=== PATIENT | male | born 1980 | race Caucasian/White ===

== ENCOUNTER 2021-04-10 18:04 | Emergency (ER) | payer OTHER ==
[~2021-04-10] VITALS: Ht 193 cm; Wt 119.0 kg
--- NOTE | 2021-04-10 18:44 | NUR ---
director of food and nutrition services: Pt ambulatory to room from lobby at this time.
--- NOTE | 2021-04-10 18:55 | NUR ---
PT C/O OF CHEST PRESSURE, HEART GURGGLING, SOB, AND COUGH SINCE 2 WEEKS AGO. PT APPEARS IN NAD, ATTACHED TO CARD/SP02/BP MONITORS. VSS. BREATHING EVEN AND UNLABORED. BED IN LOW POSITION, RAILS ENGAGED, CALL LIGHT WITHIN REACH. WCTN
[2021-04-10 19:06] LABS: BASOPHILS % (AUTO) 1 % (0-1); EOSINOPHILS % (AUTO) 3 % (1-7); LYMPHOCYTES % (AUTO) 25 % (22-44); MEAN CORPUSCULAR HEMOGLOBIN 29.7 pg (27.5-34.5); MEAN CORPUSCULAR HGB CONC 34.7 g/dL (33.2-36.2); MEAN PLATELET VOLUME 9.4 fL (7.4-10.4); MONOCYTES % (AUTO) 7 % (2-9); NEUTROPHILS % (AUTO) 64 % (42-75); PLATELET COUNT 184 x10^3/uL (130-400); RED CELL DISTRIBUTION WIDTH 13.3 % (9.4-14.8)
[2021-04-10 19:10] LABS: ALANINE AMINOTRANSFERASE 74 U/L (12-78); ALBUMIN 3.9 g/dL (3.4-5.0); ANION GAP 5 mmol/L (5-15); CALCIUM 8.4 mg/dL (8.5-10.1); CHLORIDE 106 mmol/L (98-107); CREATININE 1.16 mg/dL (0.7-1.3)
[2021-04-10 19:14] LABS: ALKALINE PHOSPHATASE 107 U/L (45-117); BILIRUBIN,TOTAL 0.3 mg/dL (0.2-1.0); TOTAL PROTEIN 7.3 g/dL (6.4-8.2); TROPONIN I < 0.015 ng/mL (0.000-0.045)
[2021-04-10 19:50] VITALS: BP 120/63
--- NOTE | 2021-04-10 20:01 | NUR ---
Patient given discharge instructions and they have confirmed that they understand the instructions. Patient ambulatory with steady gait.
== END 2021-04-10 20:02 | disposition home or self-care (01) ==
LOC: ED 19:56
DX: R00.2 Palpitations (principal); R06.00 Dyspnea, unspecified; R07.89 Other chest pain; R00.1 Bradycardia, unspecified
CPT/HCPCS: 36415; 71045; 80053; 84484; 85025; 93005; 99285

== ENCOUNTER 2021-05-28 10:49 | Emergency (ER) | payer OTHER ==
[~2021-05-28] VITALS: Ht 193 cm; Wt 114.0 kg
[2021-05-28] MEDS ORDERED: ACETAMINOPHEN 500 MG TABLET PO ONE (11:30)
[2021-05-28] MEDS ORDERED: SODIUM CHLORIDE 0.9% 1,000ML IVBOLUS ONE (11:30)
[2021-05-28] MEDS ORDERED: KETOROLAC 30 MG/1 ML IVPush ONE (11:30)
[2021-05-28] MEDS ORDERED: SODIUM CHLORIDE FLUSH 10ML SYR IVF ONE (11:30)
[2021-05-28 11:47] LABS: MEAN CORPUSCULAR HEMOGLOBIN 29.1 pg (27.5-34.5); MEAN CORPUSCULAR HGB CONC 34.2 g/dL (33.2-36.2); MEAN PLATELET VOLUME 9.3 fL (7.4-10.4); PLATELET COUNT 147 x10^3/uL (130-400); RED BLOOD COUNT 5.34 x10^6/uL (4.38-5.82); RED CELL DISTRIBUTION WIDTH 13.6 % (9.4-14.8)
[2021-05-28 11:58] LABS: ANION GAP 6 mmol/L (5-15); CALCIUM 8.7 mg/dL (8.5-10.1); CHLORIDE 105 mmol/L (98-107)
[2021-05-28 12:04] LABS: ALANINE AMINOTRANSFERASE 64 U/L (12-78); ALKALINE PHOSPHATASE 102 U/L (45-117); BILIRUBIN,TOTAL 0.5 mg/dL (0.2-1.0); CREATININE 1.38 mg/dL (0.7-1.3); TOTAL PROTEIN 7.6 g/dL (6.4-8.2); TROPONIN I < 0.015 ng/mL (0.000-0.045)
[2021-05-28 12:15] LABS: LYMPH#(MANUAL) 0.47 x10^3/uL (1-3.4); LYMPHS% (MANUAL) 8 % (22-44); MONOS#(MANUAL) 0.94 x10^3/uL (0.3-2.7); MONOS% (MANUAL) 16 % (2-9); REACTIVE LYMPHS # (MANUAL) 0.06 x10^3/uL (0-0); REACTIVE LYMPHS % (MANUAL) 1 % (0-0)
[2021-05-28 12:17] LABS: <RBC MORPHOLOGY> NORMAL; BAND#(MANUAL) 0.41 x10^3/uL; BANDS%(MANUAL) 7 % (0-7); SEG#(MANUAL) 4.01 x10^3/uL (1.8-6.8); SEGS% (MANUAL) 68 % (42-75)
[2021-05-28] MEDS ORDERED: ACETAMINOPHEN 500 MG TABLET ONE (12:28)
[2021-05-28] MEDS ORDERED: KETOROLAC 30 MG/1 ML ONE (12:28)
--- NOTE | 2021-05-28 12:35 | NUR ---
IV PLACED BY EMT. NS BOLUS INFUSING, MEDS GIVEN PER ERP ORER. VSS/UPDATED IN COMPUTER. PO FLUIDS PROVIDED PER REQUEST. AWAITING DDIMER. CALL LIGHT WITHIN REACH.
[2021-05-28 13:24] LABS: <PLATELET ESTIMATE> ADEQUATE; <PLT MORPHOLOGY> NORMAL PLT MORPH
--- NOTE | 2021-05-28 14:22 | NUR ---
PT AMBULATED IN ROOM WITH PULSE OX. READING 94%, REPORTED TO ERP.
[2021-05-28 14:56] VITALS: BP 113/77
== END 2021-05-28 15:55 | disposition home or self-care (01) ==
LOC: ED 13:43
DX: B34.9 Viral infection, unspecified (principal); Z20.822 Contact with and (suspected) exposure to COVID-19; R07.89 Other chest pain; R00.0 Tachycardia, unspecified
CPT/HCPCS: 36415; 71045; 80053; 84484; 85025; 85379; 93005; 93971; 96374; 99285; J1885; J7030; U0003; U0005